=== PATIENT | male | born 1960 | race African-American/Black ===

== ENCOUNTER 2016-10-16 09:48 | Emergency (ER) | payer OTHER ==
[~2016-10-16] VITALS: Ht 188 cm; Wt 86.6 kg
[~2016-10-16 09:48] MED LIST: ALLOPURINOL 10100 M1; ATENOLOL-CHLOR1 EACH; ATIVAN1 MG PO; CIPROFLOXACIN500 M1 PO; CRESTOR10 MG PO; FLEXERIL PO; FLONASE16 GM; INDOMETHACIN 5050 M1 PO; LEVAQUIN 500 M500 M2 PO; PROBENECID-COL1 EACH; TRAMADOL 50 MG50 MG PO; VENTOLIN HFA 1818 GM; ZOFRAN ODT4 MG PO
[2016-10-16] MEDS ORDERED: SENOKOT-S1 TA1 PO (10:56)
[2016-10-16] MEDS ORDERED: INDOMETHACIN 2525 MG PO (10:56)
[2016-10-16] MEDS ORDERED: PREDNISONE 20 M20 MG PO (10:56)
[2016-10-16] MEDS ORDERED: TRAMADOL 50 MG50 MG PO (10:59)
[2016-10-16 11:25] VITALS: BP 128/82
== END 2016-10-16 11:30 | disposition home or self-care (01) ==
LOC: ER 09:48
DX: M54.41 Lumbago with sciatica, right side (principal); I10 Essential (primary) hypertension; I25.10 Atherosclerotic heart disease of native coronary artery without angina pectoris; I25.2 Old myocardial infarction; F17.210 Nicotine dependence, cigarettes, uncomplicated; M19.90 Unspecified osteoarthritis, unspecified site; Z88.5 Allergy status to narcotic agent

== ENCOUNTER 2019-01-26 09:52 | Emergency (ER) | payer OTHER ==
[~2019-01-26] VITALS: Ht 185.4 cm; Wt 83.9 kg
[~2019-01-26 09:52] MED LIST changes: +ALLOPURINOL 10100 M1 PO; +INDOMETHACIN 2525 MG PO; +PREDNISONE 20 M20 MG PO; +SENOKOT-S1 TA1 PO
[2019-01-26 10:18] LABS: ABSOLUTE NEUTROPHILS 10.7 thou/uL (1.4-8.2); BASOPHILS 0.5 % (0.0-2.0); EOSINOPHILS 1.2 % (0.0-3.0); HEMATOCRIT 42.7 % (42.0-52.0); LYMPHOCYTES 12.2 % (24.0-44.0); MCHC 32.8 g/dL (28.0-37.0); MCV 82.5 fL (80.0-100.0); MONOCYTES 7.1 % (1.0-8.0); RBC 5.17 mil/uL (4.50-6.00); RDW 16.1 % (10.5-14.5); WBC 13.5 thou/uL (4.0-11.0)
[2019-01-26 10:30] LABS: CALCIUM 10.8 mg/dL (8.5-10.1); CREATININE 1.4 mg/dL (0.7-1.3); POTASSIUM 3.4 mmol/L (3.5-5.1)
[2019-01-26 10:37] LABS: DIRECT BILIRUBIN 0.1 mg/dL (<0.1-0.3); TOTAL BILIRUBIN 0.5 mg/dL (<0.1-1.0); TOTAL PROTEIN 9.6 g/dL (6.4-8.2)
[2019-01-26 10:55] LABS: PLATELET COUNT 192 thou/uL (150-400)
[2019-01-26 12:04] LABS: URINE BILIRUBIN NEGATIVE (Negative); URINE BLOOD NEGATIVE (Negative); URINE CLARITY CLEAR; URINE COLOR YELLOW; URINE GLUCOSE-RANDOM* NEGATIVE (Negative); URINE KETONES NEGATIVE (Negative); URINE LEUKOCYTES-REFLEX NEGATIVE (Negative); URINE NITRITE-REFLEX NEGATIVE (Negative); URINE PROTEIN (DIPSTICK) 1+ (Negative); URINE SPECIFIC GRAVITY 1.015 (1.005-1.035); URINE UROBILINOGEN 0.2 E.U./dl (0.2-1.0)
[2019-01-26 12:11] LABS: AMP/METHAMP Negative (Negative); BARBITURATES Negative (Negative); BENZODIAZEPINES Negative (Negative); COCAINE Negative (Negative); METHADONE Negative (Negative); OPIATES Negative (Negative); PCP Negative (Negative)
[2019-01-26 12:13] LABS: BACTERIA-REFLEX None Seen /HPF (None Seen); CRYSTALS None Seen /LPF (None Seen); MUCUS 0-3 Light strn/LPF (None Seen); SQUAMOUS None Seen /LPF (0-3); URINE RBC None Seen /HPF (0-2); URINE WBC-REFLEX 0-5 Rare /HPF (0-5)
[2019-01-26 12:14] LABS: HYALINE CASTS 0-3 Few /LPF (None Seen)
[2019-01-26] MEDS ORDERED: ACETAMINOPHEN-1 EAC1 PO (13:03)
[2019-01-26] MEDS ORDERED: MOBIC15 MG PO (13:03)
[2019-01-26 13:22] VITALS: BP 118/86
== END 2019-01-26 13:23 | disposition home or self-care (01) ==
LOC: ER 09:52
PROVIDERS: Emergency Medicine
DX: M70.21 Olecranon bursitis, right elbow (principal); M54.31 Sciatica, right side; M54.16 Radiculopathy, lumbar region; I10 Essential (primary) hypertension; M19.90 Unspecified osteoarthritis, unspecified site; I25.10 Atherosclerotic heart disease of native coronary artery without angina pectoris; F17.210 Nicotine dependence, cigarettes, uncomplicated; Z88.8 Allergy status to other drugs, medicaments and biological substances